=== PATIENT | female | born 1955 ===

== ENCOUNTER → 2017-12-12 | Outpatient (CLI) | payer MEDICAID ==
[~2017-12-12] MED LIST: REGADENOSON 0.4 MG/5 ML PF SYRINGE IVP ONE; SESTAMIBI TC99M/UD ISOTOPE 1 EA INJ INJ ONE
[2017-12-12 08:30] VITALS: BP 147/96
[2017-12-12 09:13] VITALS: BP 150/86
== END | disposition home or self-care (01) ==
LOC: CARDMN 08:01
PROVIDERS: ATTEND Internal Medicine Cardiovascular Disease
DX: I25.89 Other forms of chronic ischemic heart disease (principal)
CPT/HCPCS: 78452; 93017; 93306; A9500; J2785